=== PATIENT | male | born 1990 | race Two or more races ===

== ENCOUNTER 2023-11-10 20:10 | Inpatient (IN) | payer OTHER ==
--- NOTE | 2023-11-10 21:16 | ED ---
General Adult HPI - General Source: patient Mode of arrival: ambulatory Limitations: no limitations <Elieser Herrera - Last Filed: 11/10/23 22:41> <Karina Lopez - Last Filed: 11/11/23 02:46> <Alden Aguero - Last Filed: 11/14/23 05:43> - General Chief complaint: Skin/Abscess/Foreign Body Stated complaint: Abscess on tailbone Time Seen by Provider: 11/10/23 20:59 - History of Present Illness Initial comments: 33-year-old male sent in by [facility] due to complaints of abscess. Patient states he is here for alcohol abuse. Has gone 27 days without alcohol now at this point. Reports history of prior perirectal abscesses needing to be drained operating room. States over the past few months has had a abscess on his left buttock ongoing which has been waxing and waning in size. States that he most recently completed course of Keflex however reports no significant improvement since then and notes that it feels like it is in creasing in size and becoming more painful prompting presentation to the ED for further evaluation. Patient also does note some chills. Denies fever. No chest pain shortness of breath. No other complaints at this time. (Elieser Herrera) - Related Data Home Medications Medication Instructions Recorded Confirmed Acetaminophen Tab [Tylenol] 650 mg PO QID 11/11/23 11/11/23 Benztropine Mesylate [Cogentin] 1 mg PO DAILY@0600 11/11/23 11/11/23 Calcium/Mag/Zinc/D3 1 tab PO TID 11/11/23 11/11/23 Chlorpheniramine Maleate 4 mg PO Q4H PRN 11/11/23 11/11/23 [Chlor-Trimeton] Divalproex Sodium 250 mg PO TID@0600,1200,1800 11/11/23 11/11/23 FLUoxetine HCL [PROzac] 20 mg PO DAILY@0600 11/11/23 11/11/23 Ibuprofen [Motrin Ib] 600 mg PO Q6H PRN 11/11/23 11/11/23 Mirtazapine 15 mg PO HS 11/11/23 11/11/23 QUEtiapine [SEROquel] 100 mg PO HS 11/11/23 11/11/23 Venlafaxine HCl [Effexor] 37.5 mg PO DAILY@0800 11/11/23 11/11/23 amLODIPine [Norvasc] 10 mg PO DAILY@0600 11/11/23 11/11/23 busPIRone HCl [Buspar] 10 mg PO TID 11/11/23 11/11/23 ondansetron HCL [Zofran] 8 mg PO Q6H 11/11/23 11/11/23 traZODone HCL [Trazodone HCl] 300 mg PO HS 11/11/23 11/11/23 Allergies Allergy/AdvReac Type Severity Reaction Status Date / Time aspirin Allergy Rash/Hives Verified 11/11/23 11:40 Review of Systems ROS Other: All systems not noted in ROS Statement are negative. <Elieser Herrera - Last Filed: 11/10/23 22:41> ROS Other: All systems not noted in ROS Statement are negative. <Karina Lopez - Last Filed: 11/11/23 02:46> ROS Other: All systems not noted in ROS Statement are negative. <Alden Aguero - Last Filed: 11/14/23 05:43> ROS Statement: Those systems with pertinent positive or pertinent negative responses have been documented in the HPI. Past Medical History Past Medical History: Asthma History of Any Multi-Drug Resistant Organisms: None Reported Past Surgical History: No Surgical Hx Reported Past Psychological History: ADD/ADHD, Anxiety, Depression Smoking Status: Current every day smoker Past Alcohol Use History: Abuse, Daily, Heavy Past Drug Use History: Marijuana <Elieser Herrera - Last Filed: 11/10/23 22:41> General Exam Limitations: no limitations General appearance: alert, in no apparent distress Eye exam: Present: normal appearance Neck exam: Present: normal inspection Respiratory exam: Present: normal lung sounds bilaterally Cardiovascular Exam: Present: regular rate GI/Abdominal exam: Present: soft Rectal exam: Present: other (Approximately 4 x 3 cm area of warmth, erythema, induration, fluctuance of the left buttock.) Back exam: Present: normal inspection Neurological exam: Present: alert, oriented X3 <Elieser Herrera - Last Filed: 11/10/23 22:41> Course Vital Signs 11/10/23 11/11/2324 20:26 01:15 06:11 Temperature 98.8 F Pulse Rate 80 67 74 Respiratory 18 18 18 Rate Blood Pressure 150/95 109/61 120/74 O2 Sat by Pulse 100 98 100 Oximetry Medical Decision Making - Lab Data Result diagrams: 11/10/23 22:08 <Elieser Herrera - Last Filed: 11/10/23 22:41> - Lab Data Result diagrams: 11/10/23 22:50 11/10/23 22:08 <Karina Lopez - Last Filed: 11/11/23 02:46> - Lab Data Result diagrams: 11/13/23 04:45 11/12/23 05:37 <Alden Aguero - Last Filed: 11/14/23 05:43> - Medical Decision Making Was pt. sent in by a medical professional or institution (, PA, [facility], urgent care, hospital, or fpc...) When possible be specific @ -No Did you speak to anyone other than the patient for history (EMS, parent, family, police, friend...)? What history was obtained from this source @ -No Did you review nursing and triage notes (agree or disagree)? Why? @ -I reviewed and agree with nursing and triage notes Were old charts reviewed (outside hosp., previous admission, EMS record, old EKG, old radiological studies, urgent care reports/EKG's, fpc records)? Report findings @ -No old charts were reviewed Differential Diagnosis (chest pain, altered mental status, abdominal pain women, abdominal pain men, vaginal bleeding, weakness, fever, dyspnea, syncope, headache, dizziness, GI bleed, back pain, seizure, CVA, palpatations, mental health, musculoskeletal)? @ -Differential Musculoskeletal Muscular strain, contusion, ligament sprain, fracture, arthritis, septic arthritis, bursitis, cellulitis, muscle spasm, nerve compression, DVT, arterial occlusion, herpes zoster, electrolyte abnormality, tumor.... This is not meant to be in all inclusive list EKG interpreted by me (3pts min.). @ -None X-rays interpreted by me (1pt min.). @ -None done CT interpreted by me (1pt min.). @ -None done U/S interpreted by me (1pt. min.). @ -None done What testing was considered but not performed or refused? (CT, X-rays, U/S, labs)? Why? @ -None What meds were considered but not given or refused? Why? @ -None Did you discuss the management of the patient with other professionals (professionals i.e. , PA, [facility], lab, RT, psych nurse, drug abuse social worker, buckle sewer machine, teacher, homicide squad commanding officer, case fitter)? Give summary @ -No Was smoking cessation discussed for >3mins.? @ -No Was critical care preformed (if so, how long)? @ -No Were there social determinants of health that impacted care today? How? (Homelessness, low income, unemployed, alcoholism, drug addiction, transportation, low edu. Level, literacy, decrease access to med. care, long-term, rehab)? @ -No Was there de-escalation of care discussed even if they declined (Discuss DNR or withdrawal of care, Hospice)? DNR status @ -No What co-morbidities impacted this encounter? (DM, HTN, Smoking, COPD, CAD, Cancer, CVA, ARF, Chemo, Hep., AIDS, mental health diagnosis, sleep apnea, morbid obesity)? @ -None Was patient admitted / discharged? Hospital course, mention meds given and route, prescriptions, significant lab abnormalities, going to OR and other pertinent info. @ -Pending 33-year-old male presenting to the ED with complaints of perirectal abscess. Patient reports history of these in the past which have been needed to drain in the OR. Reports over the past few months has had an abscess to his right buttock that has been waxing and waning in size however most recently completed a course of Keflex and despite this reports she feels that it is continuously growing bigger in size and is causing increased pain. At this time, laboratory and imaging studies are pending and disposition pending results. Case signed out to Karina Lopez PA-C for further disposition. (Elieser Herrera) Patient signed out to me from STEPHEN Herrera. In short this is a 33-year-old male presenting with chief complaint of abscess in the gluteal cleft. By my examination of the patient the abscess seems to be mostly gluteal with little to no involvement of the anus. CT was obtained which shows inflammatory changes in the posterior bilateral perirectal and perianal region with 4.7 cm right-sided abscess noted. I spoke with Dr. Duran who states that the patient may be a dmitted and started on antibiotics and he will evaluate in the morning or we could attempt to drain the abscess and have him follow-up in the office. I discussed these options with the patient, he would prefer admission and evaluation by surgery given his history of perirectal abscesses and previous fistulas. He is started on Zosyn. He is agreeable with this plan. I discussed this case with my attending Dr. Aguero Was patient admitted / discharged? Hospital course, mention meds given and route, prescriptions, significant lab abnormalities, going to OR and other pertinent info. @ -Admitted, see above for details Undiagnosed new problem with uncertain prognosis? @ -No Drug Therapy requiring intensive monitoring for toxicity (Heparin, Nitro, Insulin, Cardizem)? @ -No Were any procedures done? @ -No Diagnosis/symptom? @ -Perianal abscess Acute, or Chronic, or Acute on Chronic? @ -Acute Uncomplicated (without systemic symptoms) or Complicated (systemic symptoms)? @ -Complicated Side effects of treatment? @ -No Exacerbation, Progression, or Severe Exacerbation? @ -No Poses a threat to life or bodily function? How? (Chest pain, USA, OR, pneumonia, PE, COPD, DKA, ARF, appy, cholecystitis, CVA, Diverticulitis, Homicidal, Suicidal, threat to staff... and all critical care pts) @ -Potentially (Karina Lopez) - Lab Data Lab Results 11/10/23 11/10/23 11/10/23 Range/Units 22:08 22:08 22:50 WBC 18.6 H (3.8-10.6) k/uL RBC 3.82 L (4.30-5.90) m/uL Hgb 12.4 L (13.0-17.5) gm/dL Hct 38.2 L (39.0-53.0) % MCV 100.0 (80.0-100.0) fL MCH 32.6 (25.0-35.0) pg MCHC 32.6 (31.0-37.0) g/dL RDW 12.6 (11.5-15.5) % Plt Count 293 (150-450) k/uL MPV 7.3 Neutrophils % 70 % Lymphocytes % 21 % Monocytes % 5 % Eosinophils % 2 % Basophils % 0 % Neutrophils # 13.0 H (1.3-7.7) k/uL Lymphocytes # 4.0 (1.0-4.8) k/uL Monocytes # 1.0 (0-1.0) k/uL Eosinophils # 0.4 (0-0.7) k/uL Basophils # 0.1 (0-0.2) k/uL Sodium 139 (137-145) mmol/L Potassium 4.5 (3.5-5.1) mmol/L Chloride 108 H (98-107) mmol/L Carbon Dioxide 21 L (22-30) mmol/L Anion Gap 10 mmol/L BUN 11 (9-20) mg/dL Creatinine 0.61 L (0.66-1.25) mg/dL Est GFR (CKD-EPI)AfAm >90 (>60 ml/min/1.73 sqM) Est GFR (CKD-EPI)NonAf >90 (>60 ml/min/1.73 sqM) Glucose 81 (74-99) mg/dL Calcium 9.0 (8.4-10.2) mg/dL Total Bilirubin 0.5 (0.2-1.3) mg/dL AST 38 (17-59) U/L ALT 18 (4-49) U/L Alkaline Phosphatase 92 (38-126) U/L Total Protein 7.5 (6.3-8.2) g/dL Albumin 4.4 (3.5-5.0) g/dL Urine Color Light Yellow Urine Appearance Cloudy (Clear) Urine pH 7.0 (5.0-8.0) Ur Specific [place] 1.022 (1.001-1.035) Urine Protein Negative (Negative) Urine Glucose (UA) Negative (Negative) Urine Ketones Trace H (Negative) Urine Blood Negative (Negative) Urine Nitrite Negative (Negative) Urine Bilirubin Negative (Negative) Urine Urobilinogen <2.0 (<2.0) mg/dL Ur Leukocyte Esterase Negative (Negative) Urine RBC 2 (0-5) /hpf Urine WBC <1 (0-5) /hpf Amorphous Sediment Rare H (None) /hpf Urine Bacteria Rare H (None) /hpf Urine Mucus Few H (None) /hpf Urine Yeast (Budding) Occasional H (None) /hpf Disposition <Cabatu,Elieser - Last Filed: 11/10/23 22:41> Time of Disposition: 00:26 <Karina Lopez - Last Filed: 11/11/23 02:46> <Alden Aguero - Last Filed: 11/14/23 05:43> Clinical Impression: Perianal abscess Disposition: ADMITTED IP TO THIS HOSP Condition: Fair
[2023-11-10] MEDS: ACETAMINOPHEN TAB 500 MG TAB PO STA (22:17)
[2023-11-10] MEDS: SODIUM CHLORIDE 0.9% 1,000 ML IV STA (22:17)
[2023-11-10 22:27] LABS: ALT 18 U/L (4-49); AST 38 U/L (17-59); African American GFR (CKD) >90 (>60 ml/min/1.73 sqM); Albumin 4.4 g/dL (3.5-5.0); Alkaline Phosphatase 92 U/L (38-126); Anion Gap 10 mmol/L; Blood Urea Nitrogen 11 mg/dL (9-20); Carbon Dioxide 21 mmol/L (22-30); Chloride 108 mmol/L (98-107); Glucose 81 mg/dL (74-99); Non-African American GFR(CKD) >90 (>60 ml/min/1.73 sqM); Potassium 4.5 mmol/L (3.5-5.1); Sodium 139 mmol/L (137-145); Total Bilirubin 0.5 mg/dL (0.2-1.3); Total Protein 7.5 g/dL (6.3-8.2)
[2023-11-10 23:18] LABS: Amorphous Sediment,Urine Rare /hpf; Appearance,Urine Cloudy (Clear); Bacteria,Urine Rare /hpf; Bilirubin,Urine Negative (Negative); Blood,Urine Negative (Negative); Budding Yeast,Urine Occasional /hpf; Color,Urine Light Yellow; Glucose,Urine (UA) Negative (Negative); Ketones,Urine Trace (Negative); Leukocyte Esterase,Urine Negative (Negative); Mucus,Urine Few /hpf; Nitrite,Urine Negative (Negative); Protein,Urine Negative (Negative); RBC,Urine 2 /hpf (0-5); Specific Gravity,Urine 1.022 (1.001-1.035); Urobilinogen,Urine <2.0 mg/dL (<2.0); WBC,Urine <1 /hpf (0-5)
--- NOTE | 2023-11-10 23:21 | CT ---
EXAMINATION TYPE: CT pelvis w con DATE OF EXAM: 11/10/2023 COMPARISON: None. HISTORY: PERIANAL ABSCESS CT DLP: 588.7 mGycm Automated exposure control for dose reduction was used. CONTRAST: Performed CT pelvis with IV Contrast, patient injected with 100 mL of Isovue 370. FINDINGS: There is ill-defined fluid and fat stranding consistent with inflammatory change along with abnormal skin thickening in the perirectal/perianal region. There is oval rim enhancing right sided fluid julio ection measuring 4.2 x 2.2 x 4.7 cm axial image 44 and coronal image 86 consistent with focal abscess . A few prominent but subcentimeter bilateral groin lymph nodes are seen. No free fluid in the pelvis. No abnormal bowel dilatation. Osseous structures are intact. IMPRESSION: Inflammatory changes in the posterior bilateral perirenal rectal/perianal region with 4.7 cm right-sided abscess noted.
[2023-11-10 23:39] LABS: Basophils # (A) 0.1 k/uL (0-0.2); Basophils % (A) 0 %; Eosinophils # (A) 0.4 k/uL (0-0.7); Eosinophils % (A) 2 %; HCT 38.2 % (39.0-53.0); HGB 12.4 gm/dL (13.0-17.5); Lymphocytes % (A) 21 %; MCH 32.6 pg (25.0-35.0); MCHC 32.6 g/dL (31.0-37.0); Mean Platelet Volume 7.3; Monocytes % (A) 5 %; Neutrophils % (A) 70 %; Platelet Count 293 k/uL (150-450); RBC 3.82 m/uL (4.30-5.90); RDW 12.6 % (11.5-15.5); WBC 18.6 k/uL (3.8-10.6)
[2023-11-10] MEDS: MORPHINE SULFATE 4 MG/ML SYRINGE IVP STA (23:48)
[2023-11-11] MEDS ORDERED: NALOXONE 0.4 MG/ML 1 ML VIAL IV PRN (00:23)
[2023-11-11] MEDS: PIPERACILLIN-TAZOBACTAM 3.375 GM in SODIUM CHLORIDE 0.9% 100 ML IVPB STA (01:07)
[2023-11-11] MEDS: QUEtiapine 100 MG TAB PO SCH (01:51)
[2023-11-11] MEDS: MORPHINE SULFATE 4 MG/ML SYRINGE IV PRN (08:27)
[2023-11-11] MEDS: PIPERACILLIN-TAZOBACTAM 3.375 GM in SODIUM CHLORIDE 0.9% 100 ML IVPB SCH (09:36)
[2023-11-11] MEDS: IV FLUID CONTINUATION 1,000 ML IV ONE (11:48)
[2023-11-11] MEDS ORDERED: ONDANSETRON 4 MG/2 ML VIAL ONE (11:50)
[2023-11-11] MEDS: ONDANSETRON 4 MG/2 ML VIAL IVP ONE (11:56)
[2023-11-11] MEDS: DEXAMETHASONE SOD PHOSPHATE 4 MG/ML 1 ML VIAL IVP ONE (11:57)
--- NOTE | 2023-11-11 12:23 | P.GSHP ---
History of Present Illness H&P Date: 11/11/23 Chief Complaint: Right buttock abscess 33-year-old male presents with complaints of pain right buttock. He has had episodes like this at least 2 other times in the past. Required surgical drainage last about 4 to 5 years ago. Says he has intermittent drainage in between these episodes. CAT scan shows abscess in the right buttock region extending from the anus. Possible crossing of midline and somewhat worrisome for horseshoe abscess at this time. Some symptoms of pain on the left as well. He has chronic scarring there with a deep depression in the skin from previous healing by secondary intention. Patient has elevated white blood cell count. No history of Crohn's disease. Never had a colonoscopy. Normal bowel habits. Denies rectal bleeding or mucus. - Review of Systems Comment: The patient denies any acute changes in vision or hearing, no dysphagia or odynophagia, no chest pain or shortness of breath, no dysuria or hematuria, no headache, no runny nose, no rectal bleeding or melena, no unexplained weight lo ss Past Medical History Past Medical History: Asthma History of Any Multi-Drug Resistant Organisms: None Reported Past Surgical History: No Surgical Hx Reported Past Anesthesia/Blood Transfusion Reactions: No Reported Reaction Past Psychological History: ADD/ADHD, Anxiety, Depression Smoking Status: Current every day smoker Past Alcohol Use History: Abuse, Daily, Heavy Past Drug Use History: Marijuana Medications and Allergies Home Medications Medication Instructions Recorded Confirmed Type Acetaminophen Tab [Tylenol] 650 mg PO QID 11/11/23 11/11/23 History Benztropine Mesylate [Cogentin] 1 mg PO DAILY@0600 11/11/23 11/11/23 History Calcium/Mag/Zinc/D3 1 tab PO TID 11/11/23 11/11/23 History Chlorpheniramine Maleate 4 mg PO Q4H PRN 11/11/23 11/11/23 History [Chlor-Trimeton] Divalproex Sodium 250 mg PO TID@0600,1200,1800 11/11/23 11/11/23 History FLUoxetine HCL [PROzac] 20 mg PO DAILY@0600 11/11/23 11/11/23 History Ibuprofen [Motrin Ib] 600 mg PO Q6H PRN 11/11/23 11/11/23 History Mirtazapine 15 mg PO HS 11/11/23 11/11/23 History QUEtiapine [SEROquel] 100 mg PO HS 11/11/23 11/11/23 History Venlafaxine HCl [Effexor] 37.5 mg PO DAILY@0800 11/11/23 11/11/23 History amLODIPine [Norvasc] 10 mg PO DAILY@0600 11/11/23 11/11/23 History busPIRone HCl [Buspar] 10 mg PO TID 11/11/23 11/11/23 History ondansetron HCL [Zofran] 8 mg PO Q6H 11/11/23 11/11/23 History traZODone HCL [Trazodone HCl] 300 mg PO HS 11/11/23 11/11/23 History Allergies Allergy/AdvReac Type Severity Reaction Status Date / Time aspirin Allergy Rash/Hives Verified 11/11/23 11:40 Surgical - Exam Vital Signs Temp Pulse Resp BP Pulse Ox 98.8 F 80 18 150/95 100 11/10/23 20:26 11/10/23 20:26 11/10/23 20:26 11/10/23 20:26 11/10/23 20:26 Physical exam: General: Well-developed, well-nourished HEENT: Normocephalic, sclerae nonicteric Abdomen: Nontender, nondistended Extremities: No edema, right buttock with large abscess at least 3 x 6 cm, some tenderness on the left side as well with area of scarring from previous incision and drainage with packing Neuro: Alert and oriented Results - Labs 11/10/23 22:50 11/10/23 22:08 Abnormal Lab Results - Last 24 Hours (Table) 11/10/23 11/10/23 11/10/23 Range/Units 22:08 22:08 22:50 WBC 18.6 H (3.8-10.6) k/uL RBC 3.82 L (4.30-5.90) m/uL Hgb 12.4 L (13.0-17.5) gm/dL Hct 38.2 L (39.0-53.0) % Neutrophils # 13.0 H (1.3-7.7) k/uL Chloride 108 H (98-107) mmol/L Carbon Dioxide 21 L (22-30) mmol/L Creatinine 0.61 L (0.66-1.25) mg/dL Urine Ketones Trace H (Negative) Amorphous Sediment Rare H (None) /hpf Urine Bacteria Rare H (None) /hpf Urine Mucus Few H (None) /hpf Urine Yeast (Budding) Occasional H (None) /hpf Diabetes panel 11/10/23 Range/Units 22:08 Sodium 139 (137-145) mmol/L Potassium 4.5 (3.5-5.1) mmol/L Chloride 108 H (98-107) mmol/L Carbon Dioxide 21 L (22-30) mmol/L BUN 11 (9-20) mg/dL Creatinine 0.61 L (0.66-1.25) mg/dL Glucose 81 (74-99) mg/dL Calcium 9.0 (8.4-10.2) mg/dL AST 38 (17-59) U/L ALT 18 (4-49) U/L Alkaline Phosphatase 92 (38-126) U/L Total Protein 7.5 (6.3-8.2) g/dL Albumin 4.4 (3.5-5.0) g/dL Calcium panel 11/10/23 Range/Units 22:08 Calcium 9.0 (8.4-10.2) mg/dL Albumin 4.4 (3.5-5.0) g/dL Pituitary panel 11/10/23 Range/Units 22:08 Sodium 139 (137-145) mmol/L Potassium 4.5 (3.5-5.1) mmol/L Chloride 108 H (98-107) mmol/L Carbon Dioxide 21 L (22-30) mmol/L BUN 11 (9-20) mg/dL Creatinine 0.61 L (0.66-1.25) mg/dL Glucose 81 (74-99) mg/dL Calcium 9.0 (8.4-10.2) mg/dL Adrenal panel 11/10/23 Range/Units 22:08 Sodium 139 (137-145) mmol/L Potassium 4.5 (3.5-5.1) mmol/L Chloride 108 H (98-107) mmol/L Carbon Dioxide 21 L (22-30) mmol/L BUN 11 (9-20) mg/dL Creatinine 0.61 L (0.66-1.25) mg/dL Glucose 81 (74-99) mg/dL Calcium 9.0 (8.4-10.2) mg/dL Total Bilirubin 0.5 (0.2-1.3) mg/dL AST 38 (17-59) U/L ALT 18 (4-49) U/L Alkaline Phosphatase 92 (38-126) U/L Total Protein 7.5 (6.3-8.2) g/dL Albumin 4.4 (3.5-5.0) g/dL Assessment and Plan (1) Perianal abscess Narrative/Plan: 33-year-old male with large right-sided perirectal abscess. Possible left-sided component as well. Will proceed with incision and drainage at this time. Risks of bleeding, infection, scarring, recurrence, poor healing, possible fistula, possible drain placement. Patient understands and wishes to proceed. Current Visit: Yes Status: Acute Code(s): K61.0 - ANAL ABSCESS SNOMED Code(s): 49851821
[2023-11-11] MEDS ORDERED: MIDAZOLAM 2 MG/2 ML VIAL ONE (12:36)
[2023-11-11] MEDS ORDERED: PROPOFOL 10 MG/ML 20 ML VIAL IV ONE (12:36)
[2023-11-11] MEDS ORDERED: fentaNYL (PF) 50 MCG/ML 2 ML AMP ONE (12:36)
[2023-11-11] MEDS ORDERED: LIDOCAINE 1% INJ 10MG/ML (20 ML MDV) ONE (12:36)
[2023-11-11] MEDS ORDERED: SUCCINYLCHOLINE CHLORIDE 200 MG/10 ML VIAL IV ONE (12:36)
[2023-11-11] MEDS ORDERED: HYDROmorphone (PF) 1 MG/ML ONE (12:36)
[2023-11-11] MEDS: BUPIVACAINE (PF) 0.25% 30 ML VIAL SQ ONE ×2 (13:12)
[2023-11-11] MEDS: LACTATED RINGERS 1,000 ML IV ONE (13:38)
[2023-11-11] MEDS ORDERED: ONDANSETRON 4 MG/2 ML VIAL IVP PRN (13:45)
--- NOTE | 2023-11-11 13:50 | P.OP ---
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 The perianal and buttock regions were prepped and draped sterile. Patient had a fluctuant tender mass on the right perirectal/buttock location. A elliptical incision was made overlying the fluctuant area. Entrance into a moderate sized abscess cavity took place. Cultures were taken. There was some granulation tissue present beneath the skin surface suggesting some chronicity. This was sent to pathology. The abscess tracked medially and into radial orientation towards the anal region. I could not demonstrate a defi nite connection to any fistula of the anal canal. As we were doing our dissection and irrigation we noticed some drainage coming from the previous scar site in a mirror location on the left buttock. An incision was made overlying the opening. A subcutaneous abscess cavity was encountered here much smaller and more tract like. Using the probe I was able to easily follow this into the near midline position posteriorly where there was a fistulous opening present. A white vessel loop was placed as a seton. Both areas were thoroughly irrigated and also debrided. These were then packed with iodophor gauze. Sterile outer dressings were applied. DISPOSITION: Stable to recovery room
[2023-11-11] MEDS: diphenhydrAMINE 50 MG/ML 1 ML VIAL IVP ONE (14:36)
[2023-11-11] MEDS: KETOROLAC 15 MG/ML 1 ML VIAL IVP SCH (15:40)
[2023-11-11] MEDS: HEPARIN SODIUM,PORCINE 5,000 UNIT/ML 1 ML VIAL SQ SCH (15:40)
[2023-11-11] MEDS: NICOTINE 14MG/24HR PATCH TRANSDERM SCH (19:58)
[2023-11-11] MEDS: DIVALPROEX 250 MG TABLET.DR PO SCH (19:59)
[2023-11-11] MEDS: traZODone HCL 100 MG TAB PO SCH (22:57)
[2023-11-11] MEDS: MIRTAZAPINE 15 MG TAB PO SCH (22:57)
[2023-11-11] MEDS: DOCUSATE 100 MG CAP PO SCH (22:57)
[2023-11-11] MEDS: busPIRone HCl 10 MG TAB PO SCH (22:57)
--- NOTE | 2023-11-12 00:29 | P.CONS ---
History of Present Illness - Reason for Consult Consult date: 11/11/23 Medical management - Chief Complaint Perineal abscess - History of Present Illness Patient is a 33-year-old male with a known history of ADD/ADHD, anxiety/depression, currently everyday smoker and heavy alcohol use and marijuana use has been having draining pus from the in her right buttock. He has been having symptoms for the past 1 month. Was on outpatient antibiotic course without improvement. Patient also had previous episodes 2 or 3 times in the past. Requiring surgical drainage last time about 4 [address] of the pelvis showed inflammatory changes in the posterior bilateral perineum rectal perianal region with 4.5 cm right-sided abscess noted. Laboratory data showed WBC 18.6 hemoglobin 12.4 and platelets 293 and neutrophils 35 0 Sodium 139 potassium 4.5 chloride 108 bicarb is 21 BUN 11 and creatinine 0.61 and blood sugar 81 Urinalysis is cloudy but negative for infection. Review of Systems Constitutional: Patient denies any fever or chills . No generalized weakness or weight loss. Abdomen: Patient denied nausea vomiting and diarrhea and abdominal pain. Cardiovascular: Patient denies any chest pain or short of breath no palpitatio ns. Respiratory: patient denied any cough is from production. No shortness of breath Neurologic: Patient denied any numbness or tingling headache. Musculoskeletal: Patient denies any complaints of joint swelling or deformity. Skin: Negative Psychiatric: Negative Endocrine: No heat or cold intolerance. No recent weight gain. Genitourinary: No dysuria or hematuria. All other 14 point ROS negative except the above Past Medical History Past Medical History: Asthma History of Any Multi-Drug Resistant Organisms: None Reported Past Surgical History: No Surgical Hx Reported Past Anesthesia/Blood Transfusion Reactions: No Reported Reaction Past Psychological History: ADD/ADHD, Anxiety, Depression Smoking Status: Current every day smoker Past Alcohol Use History: Abuse, Daily, Heavy Past Drug Use History: Marijuana Medications and Allergies Home Medications Medication Instructions Recorded Confirmed Type Acetaminophen Tab [Tylenol] 650 mg PO QID 11/11/23 11/11/23 History Benztropine Mesylate [Cogentin] 1 mg PO DAILY@0600 11/11/23 11/11/23 History Calcium/Mag/Zinc/D3 1 tab PO TID 11/11/23 11/11/23 History Chlorpheniramine Maleate 4 mg PO Q4H PRN 11/11/23 11/11/23 History [Chlor-Trimeton] Divalproex Sodium 250 mg PO TID@0600,1200,1800 11/11/23 11/11/23 History FLUoxetine HCL [PROzac] 20 mg PO DAILY@0600 11/11/23 11/11/23 History Ibuprofen [Motrin Ib] 600 mg PO Q6H PRN 11/11/23 11/11/23 History Mirtazapine 15 mg PO HS 11/11/23 11/11/23 History QUEtiapine [SEROquel] 100 mg PO HS 11/11/23 11/11/23 History Venlafaxine HCl [Effexor] 37.5 mg PO DAILY@0800 11/11/23 11/11/23 History amLODIPine [Norvasc] 10 mg PO DAILY@0600 11/11/23 11/11/23 History busPIRone HCl [Buspar] 10 mg PO TID 11/11/23 11/11/23 History ondansetron HCL [Zofran] 8 mg PO Q6H 11/11/23 11/11/23 History traZODone HCL [Trazodone HCl] 300 mg PO HS 11/11/23 11/11/23 History Allergies Allergy/AdvReac Type Severity Reaction Status Date / Time aspirin Allergy Rash/Hives Verified 11/11/23 11:40 Physical Exam Vitals: Vital Signs Temp Pulse Pulse Pulse Resp BP BP 11/11/23 14:01 85 16 154/89 11/11/23 13:54 98.4 F 104 H 16 154/89 11/11/23 11:38 98.6 F 67 16 134/79 11/11/23 08:25 74 11/11/23 07:38 97.7 F 67 16 103/66 11/11/23 06:11 74 18 120/74 11/11/23 01:15 67 18 109/61 11/10/23 20:26 98.8 F 80 18 150/95 Pulse Ox 11/11/23 14:01 97 11/11/23 13:54 93 L 11/11/23 11:38 98 11/11/23 08:25 11/11/23 07:38 97 11/11/23 06:11 100 11/11/23 01:15 98 11/10/23 20:26 100 Intake and Output 04/07/24 04/08/24 04/08/24 22:59 06:59 14:59 Intake Total 950 Output Total 20 Balance 930 Intake: IV 950 Output: Estimated Blood Loss 20 Other: Voiding Method Toilet Urinal Weight 68.039 kg 68.039 kg 68.039 kg PHYSICAL EXAMINATION: Patient is lying in the bed comfortably, no acute distress, awake alert and oriented.. HEENT: Normocephalic. Neck is supple. Pupils reactive. Nostrils clear. Oral cavity is moist. Neck reveals no JVD, carotid bruits, or thyromegaly. CHEST EXAMINATION: Trachea is central. Symmetrical expansion. Lung skinner clear to auscultation and percussion. CARDIAC: Normal S1, S2 with no gallops. No murmurs ABDOMEN: Soft. Bowel sounds normal. No organomegaly. No abdominal bruits. Right perianal abscess wound packed. Extremities: reveal no edema. No clubbing or cyanosis Neurologically awake, alert, oriented x3 with well-coordinated movements. No focal deficits noted Skin: No rash or skin lesions. Psychiatric: Coperative. Nonsuicidal. Anxious. Musculoskeletal: No joint swelling or deformity. Normal range of motion. Results CBC & Chem 7: 11/10/23 22:50 11/10/23 22:08 Labs: Abnormal Lab Results - Last 24 Hours (Table) 11/10/23 11/10/23 11/10/23 Range/Units 22:08 22:08 22:50 WBC 18.6 H (3.8-10.6) k/uL RBC 3.82 L (4.30-5.90) m/uL Hgb 12.4 L (13.0-17.5) gm/dL Hct 38.2 L (39.0-53.0) % Neutrophils # 13.0 H (1.3-7.7) k/uL Chloride 108 H (98-107) mmol/L Carbon Dioxide 21 L (22-30) mmol/L Creatinine 0.61 L (0.66-1.25) mg/dL Urine Ketones Trace H (Negative) Amorphous Sediment Rare H (None) /hpf Urine Bacteria Rare H (None) /hpf Urine Mucus Few H (None) /hpf Urine Yeast (Budding) Occasional H (None) /hpf Assessment and Plan Assessment: Right-sided perianal abscess 4.5 cm in size. Leukocytosis secondary to above Prior history of I&D due to abscess ADD/ADHD, anxiety and depression Currently everyday smoker Alcohol use disorder Marijuana use disorder Hypertension DVT prophylaxis with heparin subcu Plan: Patient will be continued on antibiotics Zosyn. General surgery is planning for I&D. Follow culture report. Continue with home medications and follow-up closely. Continue with pain man agement and bowel regimen. Further recommendations based on the clinical course. Thank you currently for your consult.
[2023-11-12] MEDS: amLODIPine 10 MG TAB PO SCH (06:12)
[2023-11-12] MEDS: FLUoxetine HCL 20 MG CAP PO SCH (06:12)
[2023-11-12] MEDS: BENZTROPINE MESYLATE 1 MG TAB PO SCH (06:12)
[2023-11-12 08:28] LABS: HCT 36.5 % (39.6-50.0); HGB 12.1 g/dL (13.0-17.0); MCH 32.4 pg (27.0-32.0); MCHC 33.2 g/dL (32.0-37.0); MCV 97.9 FL (80.0-97.0); Mean Platelet Volume 9.3 FL (9.5-12.2); NRBC Per 100 WBC 0 X 10*3/uL (0.00-0.01); Platelet Count 245 X 10*3/uL (140-440); RBC 3.73 X 10*6/uL (4.40-5.60); RDW 12.9 % (11.5-14.5); WBC 13.47 X 10*3/uL (4.50-10.00)
[2023-11-12 08:29] LABS: Basophils # (A) 0.06 X 10*3/uL (0.00-0.10); Basophils % (A) 0.4 %; Eosinophils # (A) 0.12 X 10*3/uL (0.04-0.35); Eosinophils % (A) 0.9 %; Lymphocytes # (A) 1.84 X 10*3/uL (0.90-5.00); Lymphocytes % (A) 13.7 %; Monocytes # (A) 1.09 X 10*3/uL (0.20-1.00); Monocytes % (A) 8.1 %; Neutrophils # (A) 10.31 X 10*3/uL (1.80-7.70); Neutrophils % (A) 76.5 %
[2023-11-12] MEDS: VENLAFAXINE HCL 37.5 MG TAB PO SCH (08:56)
[2023-11-12 11:08] LABS: BUN/Creat Ratio 9.75 Ratio (12.00-20.00); Blood Urea Nitrogen 7.8 mg/dL (9.0-27.0); Calcium 8.7 mg/dL (8.7-10.3); Carbon Dioxide 24.6 mmol/L (21.6-31.8); Chloride 104 mmol/L (96-109); Glucose 133 mg/dL (70-110); Potassium 3.9 mmol/L (3.5-5.5); Sodium 137 mmol/L (135-145)
[2023-11-12] MEDS: HYDROcodone/APAP 5-325MG 1 EACH TAB PO PRN (12:10)
[2023-11-12 12:55] LABS: HIV 2 AB Non-Reactive (Non-Reactive); HIV AB P24 Non-Reactive (Non-Reactive); HIV P24 AG Non-Reactive (Non-Reactive)
--- NOTE | 2023-11-12 13:24 | P.PN ---
Subjective Progress Note Date: 11/12/23 CHIEF COMPLAINT: Perirectal abscess HISTORY OF PRESENT ILLNESS: Patient postop day #1 status post incision and drainage of perirectal abscess with seton placement. Patient complains of pain. But reports the pain has shown improvement since admission. Denies any nausea or vomiting. Afebrile. WBC 18.6 down to 13.47 culture pending PHYSICAL EXAM: VITAL SIGNS: Reviewed. GENERAL: Well-developed in no acute distress. NEUROLOGIC: Alert and oriented. Cranial nerves II through XII grossly intact. SKIN: Buttocks abscess area tender with palpation. Decreased swelling. Packing is in place. Minimal drainage noted. ASSESSMENT: 1. 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 Alcohol use disorder PLAN: -Continue pain management -Continue local wound care -Continue antibiotics -Repeat CBC in a.m. Physician Senior Business Manager note has been reviewed by physician. Signing provider agrees with the documented findings, assessment, and plan of care. Objective - Vital Signs Vital signs: Vital Signs Temp 98.5 F 11/12/23 08:00 Pulse 75 11/12/23 08:00 Resp 18 11/12/23 08:00 BP 110/55 11/12/23 08:00 Pulse Ox 99 11/12/23 08:00 FiO2 Intake & Output 11/11/23 11/12/23 11/12/23 18:59 06:59 18:59 Intake Total 950 Output Total 20 Balance 930 Weight 68.039 kg Intake: IV 950 Output: Estimated Blood Loss 20 Other: Voiding Method Toilet Toilet Urinal # Voids 4 2 - Labs CBC & Chem 7: 11/12/23 05:37 11/12/23 05:37 Labs: Abnormal Lab Results - Last 24 Hours (Table) 11/12/23 11/12/23 Range/Units 05:37 05:37 WBC 13.47 H (4.50-10.00) X 10*3/uL RBC 3.73 L (4.40-5.60) X 10*6/uL Hgb 12.1 L (13.0-17.0) g/dL Hct 36.5 L (39.6-50.0) % MCV 97.9 H (80.0-97.0) FL MCH 32.4 H (27.0-32.0) pg MPV 9.3 L (9.5-12.2) FL Immature Gran # 0.05 H (0.00-0.04) X 10*3/uL Neutrophils # 10.31 H (1.80-7.70) X 10*3/uL Monocytes # 1.09 H (0.20-1.00) X 10*3/uL BUN 7.8 L (9.0-27.0) mg/dL BUN/Creatinine Ratio 9.75 L (12.00-20.00) Ratio Glucose 133 H (70-110) mg/dL Microbiology - Last 24 Hours (Table) 11/11/23 13:40 Gram Stain - Preliminary Buttock
[2023-11-12 13:58] LABS: Hepatitis A Antibody IgM Nonreactive (Nonreactive); Hepatitis B Core IgM Nonreactive (Nonreactive); Hepatitis B Surface Antigen Nonreactive (Nonreactive); Hepatitis C IgG Antibody Nonreactive (Nonreactive)
[2023-11-12] MEDS: HYDROmorphone 0.5 MG/0.5 ML SYRINGE IVP PRN (14:43)
[2023-11-12] MEDS: SENNOSIDES 8.6 MG TAB PO SCH (14:55)
--- NOTE | 2023-11-12 16:07 | P.PN ---
Subjective Progress Note Date: 11/12/23 - Reason for Consult Consult date: 11/11/23 Medical management - Chief Complaint Perineal abscess - History of Present Illness Patient is a 33-year-old male with a known history of ADD/ADHD, anxiety/depression, currently everyday smoker and heavy alcohol use and marijuana use has been having draining pus from the in her right buttock. He has been having symptoms for the past 1 month. Was on outpatient antibiotic course without improvement. Patient also had previous episodes 2 or 3 times in the past. Requiring surgical drainage last time about 4 [address] of the pelvis showed inflammatory changes in the posterior bilateral perineum rectal perianal region with 4.5 cm right-sided abscess noted. Laboratory data showed WBC 18.6 hemoglobin 12.4 and platelets 293 and neutrophils 35 0 Sodium 139 potassium 4.5 chloride 108 bicarb is 21 BUN 11 and creatinine 0.61 and blood sugar 81 Urinalysis is cloudy but negative for infection. 11/12/2023 Patient is seen and evaluated in follow-up continues on antibiotics and is status post incision and drainage of the right buttock abscess with general surgery. Patient continues to report pain and tenderness at the area and will continue current pain regimen per surgery. Will initiate stool softeners as well as as needed laxatives as patient reports is fearful of having a bowel movement given the area that the abscess is in. Continue with local wound care and awaiting finalized cultures to determine discharge antibiotics. Patient is afebrile with no reports of chest pain or shortness of breath. Patient is tolerating diet with no reported nausea or vomiting. White count is trending down just above 13 today. Patient continues on IV Zosyn. Review of systems: Constitutional: No reports of fatigue, fever, or chills Cardiovascular: No reports of chest pain or palpitations Respiratory: No reports of shortness of breath or cough GI: No reports of nausea, vomiting, or diarrhea, reports passing gas and fearful of having a bowel movement : No reports of dysuria or retention Neurovascular: No reports of weakness or numbness All medications have been reviewed PHYSICAL EXAMINATION: Patient is sitting up in the bed comfortably, no acute distress, awake alert and oriented.. Thin built, well-developed HEENT: Normocephalic. Neck is supple. Pupils reactive. Nostrils clear. Oral cavity is moist. Neck reveals no JVD, carotid bruits, or thyromegaly. Respiratory: Trachea is central. Symmetrical expansion. Lung skinner clear to auscultation and percussion. CARDIAC: Normal S1, S2 with no gallops. No murmurs ABDOMEN: Soft. Bowel sounds normal. No organomegaly. No abdominal bruits. Right perianal abscess wound packed. Extremities: reveal no edema. No clubbing or cyanosis Neurologically awake, alert, oriented x3 with well-coordinated movements. No focal deficits noted Skin: No rash or skin lesions. Psychiatric: Cooperative. Non-suicidal. Less anxious. Musculoskeletal: No joint swelling or deformity. Normal range of motion. Assessment: Right-sided perianal abscess 4.5 cm in size. Status post incision and drainage with general surgery, cultures are pending Leukocytosis secondary to above, trending down Prior history of I&D due to abscess ADD/ADHD, anxiety and depression Currently everyday smoker Alcohol use disorder Marijuana use disorder Hypertension GI prophylaxis DVT prophylaxis with heparin subcu Full code Plan: Patient will be continued on antibiotics Zosyn. General surgery following post I&D. Cultures are pending at this time. Continue with local wound care and offloading of the area Encouraged frequent walking and getting up out of the bed more often Continue with pain management and bowel regimen and will add stool softeners as needed Follow-up on hepatitis panel including HIV which are all nonreactive Will follow-up with repeat labs and recommend CBC, BMP magnesium with a.m. labs. Home medications reviewed and resumed as appropriate We will continue to follow with general surgery during hospitalization. Thank you kindly for this consultation. The impression and plan of care has been dictated by Eleonora Andrade, Nurse Practitioner as directed. Dr. Rom MD I have performed a history and examination and MDM of this patient, discussed the same with the dictator, and agree with the dictator's assessment and plan as written ,documented as a scribe. Based on total visit time, I have performed more than 50% of the visit. Objective - Vital Signs Vital signs: Vital Signs Temp 98.5 F 11/12/23 08:00 Pulse 75 11/12/23 08:00 Resp 18 11/12/23 08:00 BP 110/55 11/12/23 08:00 Pulse Ox 99 11/12/23 08:00 FiO2 Intake & Output 11/11/23 11/12/23 11/12/23 18:59 06:59 18:59 Intake Total 950 Output Total 20 Balance 930 Weight 68.039 kg Intake: IV 950 Output: Estimated Blood Loss 20 Other: Voiding Method Toilet Toilet Urinal # Voids 4 2 - Labs CBC & Chem 7: 11/12/23 05:37 11/12/23 05:37 Labs: Abnormal Lab Results - Last 24 Hours (Table) 11/12/23 Range/Units 05:37 WBC 13.47 H (4.50-10.00) X 10*3/uL RBC 3.73 L (4.40-5.60) X 10*6/uL Hgb 12.1 L (13.0-17.0) g/dL Hct 36.5 L (39.6-50.0) % MCV 97.9 H (80.0-97.0) FL MCH 32.4 H (27.0-32.0) pg MPV 9.3 L (9.5-12.2) FL Immature Gran # 0.05 H (0.00-0.04) X 10*3/uL Neutrophils # 10.31 H (1.80-7.70) X 10*3/uL Monocytes # 1.09 H (0.20-1.00) X 10*3/uL
[2023-11-13 08:48] LABS: Basophils # (A) 0.08 X 10*3/uL (0.00-0.10); Basophils % (A) 0.9 %; Eosinophils # (A) 0.23 X 10*3/uL (0.04-0.35); Eosinophils % (A) 2.5 %; HCT 35.9 % (39.6-50.0); HGB 12.1 g/dL (13.0-17.0); Lymphocytes # (A) 1.86 X 10*3/uL (0.90-5.00); Lymphocytes % (A) 20.6 %; MCH 32.4 pg (27.0-32.0); MCHC 33.7 g/dL (32.0-37.0); Mean Platelet Volume 9.6 FL (9.5-12.2); Monocytes # (A) 0.85 X 10*3/uL (0.20-1.00); Monocytes % (A) 9.4 %; NRBC Per 100 WBC 0 X 10*3/uL (0.00-0.01); Neutrophils % (A) 66.4 %; Platelet Count 240 X 10*3/uL (140-440); RBC 3.74 X 10*6/uL (4.40-5.60); RDW 13.1 % (11.5-14.5); WBC 9.04 X 10*3/uL (4.50-10.00)
--- NOTE | 2023-11-13 12:32 | P.PN ---
Subjective Progress Note Date: 11/13/23 CHIEF COMPLAINT: Perirectal abscess HISTORY OF PRESENT ILLNESS: Patient postop day #2 status post incision and drainage of perirectal abscess with seton placement. Patient's packing did fall out. He can continues to complain of pain. Pain medication is helping but he is still requiring the IV pain medication. He denies any nausea or vomiting. Afebrile. WBC is down from 13-9.04 Hgb 12.1 cultures pending PHYSICAL EXAM: VITAL SIGNS: Reviewed. GENERAL: Well-developed in no acute distress. NEUROLOGIC: Alert and oriented. Cranial nerves II through XII grossly intact. SKIN: Buttocks abscess area tender with palpation. Decreased swelling. Packing is currently out ASSESSMENT: 1. 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 Alcohol use disorder PLAN: -Nursing staff to replace packing -Continue pain management -Continue local wound care -Continue antibiotics -Repeat CBC in a.m. -Anticipate discharge possibly tomorrow Physician Agriculture Specialist note has been reviewed by physician. Signing provider agrees with the documented findings, assessment, and plan of care. Objective - Vital Signs Vital signs: Vital Signs Temp 98.2 F 11/13/23 07:38 Pulse 75 11/13/23 07:38 Resp 18 11/13/23 07:38 BP 117/72 11/13/23 07:38 Pulse Ox 94 L 11/13/23 07:38 FiO2 Intake & Output 11/12/23 11/13/23 11/13/23 18:59 06:59 18:59 Other: Voiding Method Toilet # Voids 3 3 - Labs CBC & Chem 7: 11/13/23 04:45 11/12/23 05:37 Labs: Abnormal Lab Results - Last 24 Hours (Table) 11/13/23 Range/Units 04:45 RBC 3.74 L (4.40-5.60) X 10*6/uL Hgb 12.1 L (13.0-17.0) g/dL Hct 35.9 L (39.6-50.0) % MCH 32.4 H (27.0-32.0) pg Microbiology - Last 24 Hours (Table) 11/11/23 13:40 Gram Stain - Preliminary Buttock Wound Culture - Preliminary
[2023-11-13] MEDS: HYDROmorphone 1 MG/ML 1 ML SYRINGE IVP PRN (13:17)
[2023-11-14] MEDS: ACETAMINOPHEN TAB 325 MG TAB PO PRN (01:32)
--- NOTE | 2023-11-14 05:43 | P.PN ---
Subjective Progress Note Date: 11/13/23 - Reason for Consult Consult date: 11/11/23 Medical management - Chief Complaint Perineal abscess - History of Present Illness Patient is a 33-year-old male with a known history of ADD/ADHD, anxiety/depression, currently everyday smoker and heavy alcohol use and marijuana use has been having draining pus from the in her right buttock. He has been having symptoms for the past 1 month. Was on outpatient antibiotic course without improvement. Patient also had previous episodes 2 or 3 times in the past. Requiring surgical drainage last time about 4 [address] of the pelvis showed inflammatory changes in the posterior bilateral perineum rectal perianal region with 4.5 cm right-sided abscess noted. Laboratory data showed WBC 18.6 hemoglobin 12.4 and platelets 293 and neutrophils 35 0 Sodium 139 potassium 4.5 chloride 108 bicarb is 21 BUN 11 and creatinine 0.61 and blood sugar 81 Urinalysis is cloudy but negative for infection. 11/12/2023 Patient is seen and evaluated in follow-up continues on antibiotics and is status post incision and drainage of the right buttock abscess with general surgery. Patient continues to report pain and tenderness at the area and will continue current pain regimen per surgery. Will initiate stool softeners as well as as needed laxatives as patient reports is fearful of having a bowel movement given the area that the abscess is in. Continue with local wound care and awaiting finalized cultures to determine discharge antibiotics. Patient is afebrile with no reports of chest pain or shortness of breath. Patient is tolerating diet with no reported nausea or vomiting. White count is trending down just above 13 today. Patient continues on IV Zosyn. 11/13/2023 Patient is seen in follow-up today status post incision and drainage awaiting finalized cultures to determine discharge antibiotics. Cultures thus far remain negative and patient will likely transition to oral antibiotics on discharge. Patient continues with pain and reports increased sensation including burning and tingling at the I&D site. General surgery following will continue with local wound care and dressing changes per nursing staff and continue with pain management with monitoring overnight and possible discharge in the next 24 hours. Repeat CBC ordered to monitor white count. Patient is afebrile patient reports his tolerating diet with no reported nausea or vomiting. Patient reports to passing gas but has not had a bowel movement as of yet. Review of systems: Constitutional: No reports of fatigue, fever, or chills Cardiovascular: No reports of chest pain or palpitations Respiratory: No reports of shortness of breath or cough GI: No reports of nausea, vomiting, or diarrhea, reports passing gas and fearful of having a bowel movement : No reports of dysuria or retention Neurovascular: No reports of weakness or numbness, reports buttock pain at the surgery site All medications have been reviewed PHYSICAL EXAMINATION: Patient is sitting up in the bed, no acute distress, awake alert and oriented.. Thin built, well-developed HEENT: Normocephalic. Neck is supple. Pupils reactive. Nostrils clear. Oral cavity is moist. Neck reveals no JVD, carotid bruits, or thyromegaly. Respiratory: Trachea is central. Symmetrical expansion. Lung skinner clear to aus cultation and percussion. CARDIAC: Normal S1, S2 with no gallops. No murmurs ABDOMEN: Soft. Bowel sounds normal. No organomegaly. No abdominal bruits. Right perianal abscess wound packed. Extremities: reveal no edema. No clubbing or cyanosis Neurologically awake, alert, oriented x3 with well-coordinated movements. No focal deficits noted Skin: No rash or skin lesions. Psychiatric: Cooperative. Non-suicidal. Less anxious. Musculoskeletal: No joint swelling or deformity. Normal range of motion. Assessment: Right-sided perianal abscess 4.5 cm in size. Status post incision and drainage with general surgery, cultures are negative thus far Leukocytosis secondary to above, trending down Prior history of I&D due to abscess ADD/ADHD, anxiety and depression Currently everyday smoker Alcohol use disorder Marijuana use disorder Hypertension GI prophylaxis DVT prophylaxis with heparin subcu Full code Plan: Patient will be continued on antibiotics Zosyn. General surgery following post I&D. Finalized cultures are pending and remaining negative thus far. Continue with local wound care and offloading of the area Encouraged frequent walking and getting up out of the bed more often Continue with pain management and bowel regimen and will continue stool softeners as needed. Patient reports is passing gas but has not had a bowel movement as of yet Follow-up on hepatitis panel including HIV which are all nonreactive Will repeat a.m. labs CBC and monitor the white count. Patient remains afebrile Home medications reviewed and resumed as appropriate We will continue to follow with general surgery during hospitalization. Thank you kindly for this consultation. Possible discharge planning in the next 24 hours The impression and plan of care has been dictated by Eleonora Andrade, Nurse Practitioner as directed. Dr. Rom MD I have performed a history and examination and MDM of this patient, discussed the same with the dictator, and agree with the dictator's assessment and plan as written ,documented as a scribe. Based on total visit time, I have performed more than 50% of the visit. Objective - Vital Signs Vital signs: Vital Signs Temp 98.2 F 11/13/23 07:38 Pulse 75 11/13/23 07:38 Resp 18 11/13/23 07:38 BP 117/72 11/13/23 07:38 Pulse Ox 94 L 11/13/23 07:38 FiO2 Intake & Output 11/12/23 11/13/23 11/13/23 18:59 06:59 18:59 Other: Voiding Method Toilet # Voids 3 3 - Labs CBC & Chem 7: 11/13/23 04:45 11/12/23 05:37 Labs: Abnormal Lab Results - Last 24 Hours (Table) 11/12/23 11/13/23 Range/Units 05:37 04:45 RBC 3.74 L (4.40-5.60) X 10*6/uL Hgb 12.1 L (13.0-17.0) g/dL Hct 35.9 L (39.6-50.0) % MCH 32.4 H (27.0-32.0) pg BUN 7.8 L (9.0-27.0) mg/dL BUN/Creatinine Ratio 9.75 L (12.00-20.00) Ratio Glucose 133 H (70-110) mg/dL Microbiology - Last 24 Hours (Table) 11/11/23 13:40 Gram Stain - Preliminary Buttock Wound Culture - Preliminary
[2023-11-14 08:45] LABS: Basophils # (A) 0.06 X 10*3/uL (0.00-0.10); Basophils % (A) 0.8 %; Eosinophils % (A) 1.3 %; HCT 39.3 % (39.6-50.0); HGB 12.8 g/dL (13.0-17.0); Lymphocytes # (A) 1.98 X 10*3/uL (0.90-5.00); Lymphocytes % (A) 25.6 %; MCH 31.5 pg (27.0-32.0); MCHC 32.6 g/dL (32.0-37.0); MCV 96.8 FL (80.0-97.0); Mean Platelet Volume 9.3 FL (9.5-12.2); Monocytes # (A) 1.07 X 10*3/uL (0.20-1.00); Monocytes % (A) 13.8 %; NRBC Per 100 WBC 0 X 10*3/uL (0.00-0.01); Neutrophils % (A) 58.2 %; Platelet Count 238 X 10*3/uL (140-440); RBC 4.06 X 10*6/uL (4.40-5.60); WBC 7.73 X 10*3/uL (4.50-10.00)
--- NOTE | 2023-11-14 16:45 | P.PN ---
Subjective Progress Note Date: 11/14/23 CHIEF COMPLAINT: Perirectal abscess HISTORY OF PRESENT ILLNESS: Patient postop day #3 status post incision and drainage of perirectal abscess with seton placement. Patient reports he is feeling better. He did have a low-grade temp of 100.5 this morning. White count normal at 7.73. Culture with no growth PHYSICAL EXAM: VITAL SIGNS: Reviewed. GENERAL: Well-developed in no acute distress. NEUROLOGIC: Alert and oriented. Cranial nerves II through XII grossly intact. ASSESSMENT: 1. 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 Alcohol use disorder PLAN: -Continue pain management -Continue local wound care -Continue antibiotics -Monitor for any further fevers Physician Auto Cleaner note has been reviewed by physician. Signing provider agrees with the documented findings, assessment, and plan of care. Objective - Vital Signs Vital signs: Vital Signs Temp 98.2 F 11/14/23 16:19 Pulse 69 11/14/23 16:19 Resp 17 11/14/23 16:19 BP 127/75 11/14/23 16:19 Pulse Ox 96 11/14/23 16:19 FiO2 Intake & Output 11/13/23 11/14/23 11/14/23 18:59 06:59 18:59 Intake Total 600 Balance 600 Intake: Oral 600 Other: Voiding Method Toilet # Voids 3 1 4 - Labs CBC & Chem 7: 11/14/23 04:28 11/12/23 05:37 Labs: Abnormal Lab Results - Last 24 Hours (Table) 11/14/23 Range/Units 04:28 RBC 4.06 L (4.40-5.60) X 10*6/uL Hgb 12.8 L (13.0-17.0) g/dL Hct 39.3 L (39.6-50.0) % MPV 9.3 L (9.5-12.2) FL Monocytes # 1.07 H (0.20-1.00) X 10*3/uL Microbiology - Last 24 Hours (Table) 11/11/23 13:40 Gram Stain - Final Buttock Wound Culture - Final
--- NOTE | 2023-11-15 06:11 | P.PN ---
Subjective Progress Note Date: 11/14/23 - Reason for Consult Consult date: 11/11/23 Medical management - Chief Complaint Perineal abscess - History of Present Illness Patient is a 33-year-old male with a known history of ADD/ADHD, anxiety/depression, currently everyday smoker and heavy alcohol use and marijuana use has been having draining pus from the in her right buttock. He has been having symptoms for the past 1 month. Was on outpatient antibiotic course without improvement. Patient also had previous episodes 2 or 3 times in the past. Requiring surgical drainage last time about 4 to [address] of the pelvis showed inflammatory changes in the posterior bilateral perineum rectal perianal region with 4.5 cm right-sided abscess noted. Laboratory data showed WBC 18.6 hemoglobin 12.4 and platelets 293 and neutrophils 35 0 Sodium 139 potassium 4.5 chloride 108 bicarb is 21 BUN 11 and creatinine 0.61 and blood sugar 81 Urinalysis is cloudy but negative for infection. 11/12/2023 Patient is seen and evaluated in follow-up continues on antibiotics and is status post incision and drainage of the right buttock abscess with general surgery. Patient continues to report pain and tenderness at the area and will continue current pain regimen per surgery. Will initiate stool softeners as well as as needed laxatives as patient reports is fearful of having a bowel movement given the area that the abscess is in. Continue with local wound care and awaiting finalized cultures to determine discharge antibiotics. Patient is afebrile with no reports of chest pain or shortness of breath. Patient is tolerating diet with no reported nausea or vomiting. White count is trending down just above 13 today. Patient continues on IV Zosyn. 11/13/2023 Patient is seen in follow-up today status post incision and drainage awaiting finalized cultures to determine discharge antibiotics. Cultures thus far remain negative and patient will likely transition to oral antibiotics on discharge. Patient continues with pain and reports increased sensation including burning and tingling at the I&D site. General surgery following will continue with local wound care and dressing changes per nursing staff and continue with pain management with monitoring overnight and possible discharge in the next 24 hours. Repeat CBC ordered to monitor white count. Patient is afebrile patient reports his tolerating diet with no reported nausea or vomiting. Patient reports to passing gas but has not had a bowel movement as of yet. 11/14/2023 Patient is seen in follow-up this morning admitted under surgery services maintained on antibiotics. Cultures are negative. Pain is tolerable and being managed. Patient was noted to have a low-grade temp and will be monitored overnight for any further fevers and consider discharge planning in 24 hours. Patient is currently afebrile with no reports of chest pain or shortness of breath. Patient is tolerating diet with no reported nausea or vomiting. Patient is offloading frequently to the site and reports some improvement in pain. Continue local wound care. Review of systems: Constitutional: No reports of fatigue, fever, or chills Cardiovascular: No reports of chest pain or palpitations Respiratory: No reports of shortness of breath or cough GI: No reports of nausea, vomiting, or diarrhea, reports passing gas : No reports of dysuria or retention Neurovascular: No reports of weakness or numbness, reports buttock pain at the surgery site although feels is improving All medications have been reviewed PHYSICAL EXAMINATION: Patient is sitting up in the bed, no acute distress, awake alert and oriented.. Thin built, well-developed HEENT: Normocephalic. Neck is supple. Pupils reactive. Nostrils clear. Oral cavity is moist. Neck reveals no JVD, carotid bruits, or thyromegaly. Respiratory: Trachea is central. Symmetrical expansion. Lung skinner clear to auscultation and percussion. CARDIAC: Normal S1, S2 with no gallops. No murmurs ABDOMEN: Soft. Bowel sounds normal. No organomegaly. No abdominal bruits. Right perianal abscess wound packed. Extremities: reveal no edema. No clubbing or cyanosis Neurologically awake, alert, oriented x3 with well-coordinated movements. No focal deficits noted Skin: No rash or skin lesions. Psychiatric: Cooperative. Non-suicidal. Less anxious. Musculoskeletal: No joint swelling or deformity. Normal range of motion. Assessment: Right-sided perianal abscess 4.5 cm in size. Status post incision and drainage with general surgery, cultures are negative thus far Leukocytosis secondary to above, improved and within normal limits Prior history of I&D due to abscess ADD/ADHD, anxiety and depression Currently everyday smoker Alcohol use disorder Marijuana use disorder Hypertension GI prophylaxis DVT prophylaxis with heparin subcu Full code Plan: Patient will be continued on antibiotics Zosyn. General surgery following post I&D. Finalized cultures are pending and remaining negative thus far. Continue with local wound care and offloading of the area Patient did have a low-grade temp overnight and will be monitored for any furt her fevers possible discharge planning per surgery in 24 hours Encouraged frequent walking and getting up out of the bed more often Continue with pain management and bowel regimen and will continue stool softeners as needed. White count has normalized. Patient did have a low-grade temp and will be monitored for any further fevers. Continue with Tylenol or Motrin for fever. Home medications reviewed and resumed as appropriate We will continue to follow with general surgery during hospitalization. Thank you kindly for this consultation. Possible discharge planning in the next 24 hours The impression and plan of care has been dictated by Eleonora Andrade, Nurse Practitioner as directed. Dr. Rom MD I have performed a history and examination and MDM of this patient, discussed the same with the dictator, and agree with the dictator's assessment and plan as written ,documented as a scribe. Based on total visit time, I have performed more than 50% of the visit. Objective - Vital Signs Vital signs: Vital Signs Temp 100.5 F H 11/14/23 01:22 Pulse 84 11/14/23 01:22 Resp 16 11/14/23 01:22 BP 127/68 11/14/23 01:22 Pulse Ox 92 L 11/14/23 01:22 FiO2 Intake & Output 11/13/23 11/13/23 11/14/23 06:59 18:59 06:59 Other: Voiding Method Toilet # Voids 3 3 1 - Labs CBC & Chem 7: 11/14/23 04:28 11/12/23 05:37 Labs: Abnormal Lab Results - Last 24 Hours (Table) 11/13/23 Range/Units 04:45 RBC 3.74 L (4.40-5.60) X 10*6/uL Hgb 12.1 L (13.0-17.0) g/dL Hct 35.9 L (39.6-50.0) % MCH 32.4 H (27.0-32.0) pg Microbiology - Last 24 Hours (Table) 11/11/23 13:40 Gram Stain - Preliminary Buttock Wound Culture - Preliminary
--- NOTE | 2023-11-15 11:15 | XR ---
EXAMINATION TYPE: XR chest 1V portable DATE OF EXAM: 11/15/2023 COMPARISON: NONE HISTORY: Shortness of breath TECHNIQUE: Single frontal view of the chest is obtained. FINDINGS: There is no focal air space opacity, pleural effusion, or pneumothorax seen. The cardiac silhouette size is within normal limits. The osseous structures are intact. IMPRESSION: No acute process.
[2023-11-15] MEDS: BENZOCAINE/MENTHOL LOZENG 1 EACH LOZENGE MUCOUS MEM PRN (12:05)
--- NOTE | 2023-11-15 12:29 | P.DS ---
Providers Date of admission: 11/14/23 08:47 Expected date of discharge: 11/15/23 Attending physician: Gerardo Duran Consults: 11/11/23 09:50 Consult Physician Routine Consulting Provider: Sandoval [place] Consult Reason/Comments: medical management Do you want consulting provider notified?: Yes Primary care physician: Stated None Hospital Course: Discharge diagnosis 1. 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 Alcohol use disorder Hospital course This is a 33-year-old male with a perirectal abscess bilaterally with a perianal fistula on the left. He is status post incision and drainage of perirectal abscess with steton placement. Patient reports his pain is controlled. He denies any nausea or vomiting. He is afebrile. He is ambulating. He is stable for discharge. Patient will be discharged back to [place]. Physician Home Aid note has been reviewed by physician. Signing provider agrees with the documented findings, assessment, and plan of care. Patient Condition at Discharge: Stable Plan - Discharge Summary Discharge Rx Participant: No New Discharge Prescriptions: New HYDROcodone/APAP 5-325MG [[place] 5-325] 1 tab PO Q6HR PRN 3 Days #12 tab PRN Reason: Pain Levofloxacin [Levaquin] 500 mg PO DAILY 7 Days #7 tab No Action traZODone HCL [Trazodone HCl] 300 mg PO HS ondansetron HCL [Zofran] 8 mg PO Q6H Venlafaxine HCl [Effexor] 37.5 mg PO DAILY@0800 QUEtiapine [SEROquel] 100 mg PO HS Acetaminophen Tab [Tylenol] 650 mg PO QID Mirtazapine 15 mg PO HS Ibuprofen [Motrin Ib] 600 mg PO Q6H PRN PRN Reason: Pain FLUoxetine HCL [PROzac] 20 mg PO DAILY@0600 Divalproex Sodium 250 mg PO TID@0600,1200,1800 Chlorpheniramine Maleate [Chlor-Trimeton] 4 mg PO Q4H PRN PRN Reason: Allergy Symptoms Calcium/Mag/Zinc/D3 1 tab PO TID busPIRone HCl [Buspar] 10 mg PO TID amLODIPine [Norvasc] 10 mg PO DAILY@0600 Benztropine Mesylate [Cogentin] 1 mg PO DAILY@0600 Discharge Medication List Acetaminophen Tab [Tylenol] 650 mg PO QID 11/11/23 [History] Benztropine Mesylate [Cogentin] 1 mg PO DAILY@0600 11/11/23 [History] Calcium/Mag/Zinc/D3 1 tab PO TID 11/11/23 [History] Chlorpheniramine Maleate [Chlor-Trimeton] 4 mg PO Q4H PRN 11/11/23 [History] Divalproex Sodium 250 mg PO TID@0600,1200,1800 11/11/23 [History] FLUoxetine HCL [PROzac] 20 mg PO DAILY@0611/11/23 [History] Ibuprofen [Motrin Ib] 600 mg PO Q6H PRN 11/11/23 [History] Mirtazapine 15 mg PO HS 11/11/23 [History] QUEtiapine [SEROquel] 100 mg PO HS 11/11/23 [History] Venlafaxine HCl [Effexor] 37.5 mg PO DAILY@0811/11/23 [History] amLODIPine [Norvasc] 10 mg PO DAILY@0600 11/11/23 [History] busPIRone HCl [Buspar] 10 mg PO TID 11/11/23 [History] ondansetron HCL [Zofran] 8 mg PO Q6H 11/11/23 [History] traZODone HCL [Trazodone HCl] 300 mg PO HS 11/11/23 [History] HYDROcodone/APAP 5-325MG [[place] 5-325] 1 tab PO Q6HR PRN 3 Days #12 tab 11/15/23 [Rx] Levofloxacin [Levaquin] 500 mg PO DAILY 7 Days #7 tab 11/15/23 [Rx] Follow up Appointment(s)/Referral(s): Gerardo Duran MD [Medical Doctor] - 2 Weeks None,Stated [Primary Care Provider] - 1-2 days Activity/Diet/Wound Care/Special Instructions: Patient will return to [facility] on discharge. They will pick him up, please call #[phone]. Wound care Patient to shower daily. Change Aquacel silver rope packing to buttocks wound daily and cover with ABD pad. Discharge Disposition: HOME SELF-CARE
[2023-11-15 15:02] VITALS: BP 118/78; PULSE 73; RESP 18; TEMP 98.3
--- NOTE | 2023-11-18 15:53 | P.PN ---
Subjective Progress Note Date: 11/15/23 - Reason for Consult Consult date: 11/11/23 Medical management - Chief Complaint Perineal abscess - History of Present Illness Patient is a 33-year-old male with a known history of ADD/ADHD, anxiety/depression, currently everyday smoker and heavy alcohol use and marijuana use has been having draining pus from the in her right buttock. He has been having symptoms for the past 1 month. Was on outpatient antibiotic course without improvement. Patient also had previous episodes 2 or 3 times in the past. Requiring surgical drainage last time about 4 [address] of the pelvis showed inflammatory changes in the posterior bilateral perineum rectal perianal region with 4.5 cm right-sided abscess noted. Laboratory data showed WBC 18.6 hemoglobin 12.4 and platelets 293 and neutrophils 35 0 Sodium 139 potassium 4.5 chloride 108 bicarb is 21 BUN 11 and creatinine 0.61 and blood sugar 81 Urinalysis is cloudy but negative for infection. 11/12/2023 Patient is seen and evaluated in follow-up continues on antibiotics and is status post incision and drainage of the right buttock abscess with general surgery. Patient continues to report pain and tenderness at the area and will continue current pain regimen per surgery. Will initiate stool softeners as well as as needed laxatives as patient reports is fearful of having a bowel movement given the area that the abscess is in. Continue with local wound care and awaiting finalized cultures to determine discharge antibiotics. Patient is afebrile with no reports of chest pain or shortness of breath. Patient is tolerating diet with no reported nausea or vomiting. White count is trending down just above 13 today. Patient continues on IV Zosyn. 11/13/2023 Patient is seen in follow-up today status post incision and drainage awaiting finalized cultures to determine discharge antibiotics. Cultures thus far remain negative and patient will likely transition to oral antibiotics on discharge. Patient continues with pain and reports increased sensation including burning and tingling at the I&D site. General surgery following will continue with local wound care and dressing changes per nursing staff and continue with pain management with monitoring overnight and possible discharge in the next 24 hours. Repeat CBC ordered to monitor white count. Patient is afebrile patient reports his tolerating diet with no reported nausea or vomiting. Patient reports to passing gas but has not had a bowel movement as of yet. 11/14/2023 Patient is seen in follow-up this morning admitted under surgery services maintained on antibiotics. Cultures are negative. Pain is tolerable and being managed. Patient was noted to have a low-grade temp and will be monitored overnight for any further fevers and consider discharge planning in 24 hours. Patient is currently afebrile with no reports of chest pain or shortness of breath. Patient is tolerating diet with no reported nausea or vomiting. Patient is offloading frequently to the site and reports some improvement in pain. Continue local wound care. 11/15/2023 Patient is seen and evaluated in follow-up and has been maintained on IV antibiotics febrile for 24 hours admitted under general surgery. Patient is status post incision and drainage of a gluteal abscess and cultures are negative. Patient reports to having a cough with no shortness of breath or chest pains noted. Will obtain a chest x-ray for further evaluation. Patient tolerating diet with no reported nausea or vomiting noted. Patient is medically stable and per nursing staff patient will be returning to [facility] for continued inpatient rehab. Review of systems: Constitutional: No reports of fatigue, fever, or chills Cardiovascular: No reports of chest pain or palpitations Respiratory: No reports of shortness of breath, reports slight cough GI: No reports of nausea, vomiting, or diarrhea, reports passing gas : No reports of dysuria or retention Neurovascular: No reports of weakness or numbness, reports buttock pain at the surgery site although feels is improving All medications have been reviewed PHYSICAL EXAMINATION: Patient is sitting up in the bed, no acute distress, awake alert and oriented.. Thin built, well-developed HEENT: Normocephalic. Neck is supple. Pupils reactive. Nostrils clear. Oral cavity is moist. Neck reveals no JVD, carotid bruits, or thyromegaly. Respiratory: Trachea is central. Symmetrical expansion. Lung skinner clear to auscultation and percussion. CARDIAC: Normal S1, S2 with no gallops. No murmurs ABDOMEN: Soft. Bowel sounds normal. No organomegaly. No abdominal bruits. Right perianal abscess wound packed. Extremities: reveal no edema. No clubbing or cyanosis Neurologically awake, alert, oriented x3 with well-coordinated movements. No focal deficits noted Skin: No rash or skin lesions. Psychiatric: Cooperative. Non-suicidal. Less anxious. Musculoskeletal: No joint swelling or deformity. Normal range of motion. Assessment: Right-sided perianal abscess 4.5 cm in size. Status post incision and drainage with general surgery, cultures are negative thus far Leukocytosis secondary to above, improved and within normal limits Prior history of I&D due to abscess ADD/ADHD, anxiety and depression Currently everyday smoker Alcohol use disorder Marijuana use disorder Hypertension GI prophylaxis DVT prophylaxis with heparin subcu Full code Plan: Patient is continued on antibiotics Zosyn. General surgery following post I&D. Finalized cultures are pending and remaining negative thus far. Continue with local wound care and offloading of the area. Patient will continue on oral antibiotics on discharge Patient with no further fevers overnight. Per nursing staff patient did report a slight cough. Chest x-ray obtained and negative for any acute process maintaining oxygen saturations above 97% on room air Encouraged frequent walking and getting up out of the bed more often Continue with pain management and bowel regimen and will continue stool softeners as needed. White count has normalized. Home medications reviewed and resumed as appropriate We will continue to follow with general surgery during hospitalization. Thank you kindly for this consultation. Patient is medically stable for discharge back to [facility] once cleared by general surgery. The impression and plan of care has been dictated by Eleonora Andrade, Nurse Practitioner as directed. Dr. Rom MD I have performed a history and examination and MDM of this patient, discussed the same with the dictator, and agree with the dictator's assessment and plan as written ,documented as a scribe. Based on total visit time, I have performed more than 50% of the visit. Objective - Vital Signs Vital signs: Vital Signs Temp 98.7 F 11/15/23 07:45 Pulse 68 11/15/23 07:45 Resp 17 11/15/23 07:45 BP 118/79 11/15/23 07:45 Pulse Ox 99 11/15/23 07:45 FiO2 Intake & Output 11/14/23 11/15/23 11/15/23 18:59 06:59 18:59 Intake Total 600 Balance 600 Intake: Oral 600 Other: Voiding Method Toilet Toilet # Voids 4 2 - Labs CBC & Chem 7: 11/14/23 04:28 11/12/23 05:37 Labs: Microbiology - Last 24 Hours (Table) 11/11/23 13:40 Gram Stain - Final Buttock Wound Culture - Final
== END 2023-11-15 15:00 | disposition home or self-care (01) | DRG 254 ==
LOC: EC 20:10 → 6NMEDSUR 11-11 00:24 → 4SSUR 11-11 04:26 → OBSVTOIN 11-14 08:47
PROVIDERS: ADMIT Surgery; ATTEND Surgery
PROC: 0D9P70Z Drainage of Rectum with Drainage Device, Via Natural or Artificial Opening (ICD-10-PCS; principal; 2023-11-14)
DX: K61.2 Anorectal abscess (principal); L02.215 Cutaneous abscess of perineum; I10 Essential (primary) hypertension; F90.9 Attention-deficit hyperactivity disorder, unspecified type; F41.9 Anxiety disorder, unspecified; F32.A Depression, unspecified; F17.200 Nicotine dependence, unspecified, uncomplicated; F10.11 Alcohol abuse, in remission; Z79.899 Other long term (current) drug therapy; Z88.8 Allergy status to other drugs, medicaments and biological substances
CPT/HCPCS: 36415; 71045; 72193; 80048; 80053; 80074; 81001; 85025; 87070; 87075; 87205; 87390; 88304; 96361; 96365; 96366; 96375; 99285